=== PATIENT | female | born 1985 | race Caucasian/White ===

== ENCOUNTER 2018-04-26 22:09 | Emergency (ER) | payer BC ==
[2018-04-26 22:46] VITALS: TEMP 97.6; BMI 21.2
[2018-04-26] MEDS ORDERED: Sodium Chloride 0.9% 1,000 ML IV STA (23:17)
[2018-04-27 00:23] LABS: URINE BILIRUBIN NEGATIVE (NEGATIVE); URINE BLOOD MODERATE (NEGATIVE); URINE GLUCOSE (UA) NEGATIVE (NEGATIVE); URINE LEUKOCYTE ESTERASE NEGATIVE Leu/uL (NEGATIVE); URINE PROTEIN NEGATIVE mg/dL (<30 mg/dL); URINE UROBILINOGEN 0.2 E.U./dL (<1 E.U./dL)
[2018-04-27 00:27] LABS: URINE APPEARANCE SL CLOUDY (CLEAR); URINE COLOR YELLOW (YELLOW)
[2018-04-27 00:39] LABS: BASO # 0.03 K/mm3 (0.0-2.0); BASO % 0.2 % (0.0-3.0); EOS # 0.2 (0.0-0.7); EOS % 1.6 % (1.5-5.0); GRAN # 8.67 (1.4-6.5); GRAN % 67.7 % (50.0-68.0); HEMOGLOBIN 12.4 g/dL (12.0-16.0); LYMPH # 3.1 (1.2-3.4); MEAN CELL VOLUME 80.4 fl (80.0-105.0); MEAN CORPUSCULAR HEMOGLOBIN 27.6 pg (25.0-35.0); MEAN CORPUSCULAR HGB CONC 34.3 g/dl (31.0-37.0); MONO # 0.8 (0.1-0.6); MONO % 6.5 % (1.0-6.0); RBC 4.5 10^6/uL (3.5-6.1); RED CELL DISTRIBUTION WIDTH 14.4 % (11.5-14.5); WHITE BLOOD COUNT 12.8 10^3/ul (4.5-11.0)
[2018-04-27 00:42] LABS: URINE BACTERIA TRACE (NEG); URINE WBC 0 - 2 /hpf (0-6)
[2018-04-27 01:01] LABS: ALB/GLOB RATIO 1.3 (1.1-1.8); ALBUMIN 4.6 g/dL (3.0-4.8); ALT/SGPT 24 U/L (7-56); AST/SGOT 66 U/L (14-36); BLOOD UREA NITROGEN 9 mg/dL (7-21); GFR NON-AFRICAN AMERICAN > 60
--- NOTE | 2018-04-27 01:47 | ED PDOC ---
Arrival/HPI - History of Present Illness Narrative History of Present Illness (Text): 04/27/18 04:30 32 y/o A0 5 week female with no significant PMH presents to ED c/o vaginal spotting x 1 day. Pt reports brown blood in underwear today with associated lower abdominal cramping. Pt has not yet followed up with OB or received an US for this . Has OB appointment scheduled for next week. Denies trauma, passing of clots, fevers, chills, N/V, lightheadedness, SOB, chest pain, white/yellow vaginal discharge, urinary symptoms. <Janell Diaz - Last Filed: 04/27/18 04:27> <Raffi Cunningham - Last Filed: 04/29/18 06:30> - General Chief Complaint: Abdominal Pain Time Seen by Provider: 04/26/18 23:15 Past Medical History - Provider Review Nursing Documentation Reviewed: Yes - Infectious Disease Hx of Infectious Diseases: None - Psychiatric Hx Substance Use: No <Janell Diaz - Last Filed: 04/27/18 04:27> Family/Social History - Physician Review Nursing Documentation Reviewed: Yes Family/Social History: No Known Family HX Smoking Status: Never Smoked Hx Alcohol Use: No Hx Substance Use: No <Janell Diaz - Last Filed: 04/27/18 04:27> Allergies/Home Meds <Janell Diaz - Last Filed: 04/27/18 04:27> <Raffi Cunningham - Last Filed: 04/29/18 06:30> Allergies/Adverse Reactions: Allergies No Known Allergies Allergy (Verified 04/26/18 22:52) Home Medications: Home Meds Medication Instructions Recorded Confirmed RX: No Known Home Med 04/26/18 04/26/18 Review of Systems - Physician Review All systems were reviewed & negative as marked: Yes - Review of Systems Constitutional: Normal. absent: Fevers Eyes: Normal ENT: Normal Respiratory: Normal. absent: SOB, Cough Cardiovascular: Normal. absent: Chest Pain, Palpitations Gastrointestinal: Abdominal Pain. absent: Stool Changes, Nausea, Vomiting Genitourinary Female: Vaginal Bleeding. absent: Dysuria, Frequency, Hematuria, Urine Output Changes, Vaginal Discharge Musculoskeletal: Normal Skin: Normal Neurological: Normal. absent: Headache, Dizziness Endocrine: Normal Hemo/Lymphatic: Normal Psychiatric: Normal <aJnell Diaz - Last Filed: 04/27/18 04:27> Physical Exam Vital Signs Reviewed: Yes Vital Signs Temp Pulse Resp BP Pulse Ox 04/26/18 22:45 97.6 F 84 17 119/60 100 Temperature: Afebrile Blood Pressure: Normal Pulse: Regular Respiratory Rate: Normal Appearance: Positive for: Well-Appearing, Non-Toxic, Comfortable Pain Distress: None Mental Status: Positive for: Alert and Oriented X 3 - Systems Exam Head: Present: Atraumatic, Normocephalic Pupils: Present: PERRL Extroacular Muscles: Present: EOMI Conjunctiva: Present: Normal Mouth: Present: Moist Mucous Membranes Neck: Present: Normal Range of Motion Respiratory/Chest: Present: Clear to Auscultation, Good Air Exchange. No: Respiratory Distress, Accessory Muscle Use Cardiovascular: Present: Regular Rate and Rhythm, Normal S1, S2. No: Murmurs Abdomen: Present: Normal Bowel Sounds. No: Tenderness, Distention, Peritoneal Signs Genitourinary/Pelvic Exam: Present: Normal External Genitalia, Vaginal Bleeding (small amounts of brown blood in vaginal canal), Cervical os Closed. No: Vaginal Discharge, Vaginal Lesions, Adenexal Tenderness, Adenexal Mass, Cervical Motion Tendernes, Odor Back: Present: Normal Inspection Upper Extremity: Present: Normal Inspection, Normal ROM, NORMAL PULSES. No: Cyanosis, Edema Lower Extremity: Present: Normal Inspection, NORMAL PULSES, Normal ROM. No: Edema Neurological: Present: GCS=15, CN II-XII Intact, Speech Normal Skin: Present: Warm, Dry, Normal Color. No: Rashes Lymphatic: No: Cervical Adenopathy Psychiatric: Present: Alert, Oriented x 3, Normal Insight, Normal Concentration <Janell Diaz - Last Filed: 04/27/18 04:27> Vital Signs Temp Pulse Resp BP Pulse Ox 04/27/18 01:58 97.6 F 76 18 120/70 98 04/26/18 22:45 97.6 F 84 17 119/60 100 <Raffi Cunningham - Last Filed: 04/29/18 06:30> Medical Decision Making ED Course and Treatment: 04/27/18 04:27 Initial Plan: --poc preg --beta hcg --TV US --CBC, CMP --UA, culture --type and screen --pelvic exam --fluids CBC, CMP: wnl beta hcg: appropriate for gestation UA: wnl Type and screen: B +, rhogham not indicated TV US: Ultrasound pelvis, transvaginal. Indication: Vaginal spotting. Technique: Transvaginal real-time ultrasound images were obtained. Findings: Retroverted uterus measuring 9.8x4.9x6.4 cm. Intrauterine gestational sac is noted measuring 1.9 cm which corresponds to an estimated gestation age of 5 weeks and 4 days. Normal yolk sac measuring 2.2 mm. No pole or cardiac activity is identified. No free fluid is noted in the pelvic cul-de-sac. Complex corpus luteum cyst of the right ovary measuring 2.1 cm. Simple cyst of the left ovary measuring 2.6 cm. Impression: Intrauterine gestational sac without pole. Right ovarian corpus luteum cyst. Left ovarian anechoic, simple cyst. Impression: Vaginal bleeding in Plan: --bedrest --followup with OBGYN as scheduled next week --return if worse Plan discussed with pt, who agrees and understands. pt comfortable with discharge home 04/27/18 04:33 - Lab Interpretations Lab Results: 04/27/18 00:26 04/27/18 00:26 Lab Results 04/27/18 00:26: Sodium 139, Potassium 4.5, Chloride 104, Carbon Dioxide 26, Anion Gap 13, BUN 9, Creatinine 0.6 L, Est GFR ( Amer) > 60, Est GFR (Non-Af Amer) > 60, Random Glucose 88, Calcium 10.0, Total Bilirubin 0.3, AST 66 H, ALT 24, Alkaline Phosphatase 73, Total Protein 8.2, Albumin 4.6, Globulin 3.6, Albumin/Globulin Ratio 1.3 04/27/18 00:26: WBC 12.8 H, RBC 4.50, Hgb 12.4, Hct 36.2, MCV 80.4, MCH 27.6, MCHC 34.3, RDW 14.4, Plt Count 366, MPV 10.0, Gran % 67.7, Lymph % (Auto) 24.0, Mclennan % (Auto) 6.5 H, Eos % (Auto) 1.6, Baso % (Auto) 0.2, Gran # 8.67 H, Lymph # (Auto) 3.1, Mclennan # (Auto) 0.8 H, Eos # (Auto) 0.2, Baso # (Auto) 0.03 04/26/18 23:15: Urine Color Yellow, Urine Appearance Sl cloudy, Urine pH 6.0, Ur Specific Norman 1.020, Urine Protein Negative, Urine Glucose (UA) Negative, Urine Ketones Trace H, Urine Blood Moderate H, Urine Nitrate Negative, Urine Bilirubin Negative, Urine Urobilinogen 0.2, Ur Leukocyte Esterase Negative, Urine RBC 2 - 5, Urine WBC 0 - 2, Ur Epithelial Cells 3 - 4, Urine Bacteria Trace - RAD Interpretation Radiology Orders: 04/26/18 23:15 OB TRANSVAGINAL [US] Stat - Medication Orders Current Medication Orders: Discontinued Medications Sodium Chloride (Sodium Chloride 0.9%) 1,000 mls @ 999 mls/hr IV .Q1H1M STA Stop: 04/27/18 00:17 Last Admin: 04/27/18 00:21 Dose: 999 mls/hr eMAR Start Stop Document 04/27/18 00:21 OCS (Rec: 04/27/18 00:21 OCS [id number]) Intravenous Solution Start Date 04/27/18 Start Time 00:21 End Date 04/27/18 End time 01:22 Total Infusion Time 61 <Janell Diaz - Last Filed: 04/27/18 04:27> ED Course and Treatment: 04/29/18 06:30 The documented history was done by the physician piece meat trimmer. The documented phys ical exam was done by the physician piece meat trimmer. The documented procedures were done by the physician piece meat trimmer, I was available for consultation during the PA/PHYSICS TEACHER evaluation. The chart was reviewed by me, and I agree with the management and plan. - Lab Interpretations Microbiology Results: Microbiology Results 04/26/18 23:15 Urine Urine Culture - Final No Growth (<1,000 CFU/ML) Lab Results: 04/27/18 00:26 04/27/18 00:26 Lab Results 04/27/18 01:48: Blood Type Confirm B POSITIVE 04/27/18 01:13: Blood Type B POSITIVE, Antibody Screen Negative, BBK History Checked No verified bt 04/27/18 00:26: Sodium 139, Potassium 4.5, Chloride 104, Carbon Dioxide 26, Anion Gap 13, BUN 9, Creatinine 0.6 L, Est GFR ( Amer) > 60, Est GFR (Non-Af Amer) > 60, Random Glucose 88, Calcium 10.0, Total Bilirubin 0.3, AST 66 H, ALT 24, Alkaline Phosphatase 73, Total Protein 8.2, Albumin 4.6, Globulin 3.6, Albumin/Globulin Ratio 1.3 04/27/18 00:26: WBC 12.8 H, RBC 4.50, Hgb 12.4, Hct 36.2, MCV 80.4, MCH 27.6, MCHC 34.3, RDW 14.4, Plt Count 366, MPV 10.0, Gran % 67.7, Lymph % (Auto) 24.0, Mclennan % (Auto) 6.5 H, Eos % (Auto) 1.6, Baso % (Auto) 0.2, Gran # 8.67 H, Lymph # (Auto) 3.1, Mclennan # (Auto) 0.8 H, Eos # (Auto) 0.2, Baso # (Auto) 0.03 04/27/18 00:26: Beta HCG, Quant 96103.00 H 04/26/18 23:15: Urine Color Yellow, Urine Appearance Sl cloudy, Urine pH 6.0, Ur Specific Norman 1.020, Urine Protein Negative, Urine Glucose (UA) Negative, U rine Ketones Trace H, Urine Blood Moderate H, Urine Nitrate Negative, Urine Bilirubin Negative, Urine Urobilinogen 0.2, Ur Leukocyte Esterase Negative, Urine RBC 2 - 5, Urine WBC 0 - 2, Ur Epithelial Cells 3 - 4, Urine Bacteria Trace - RAD Interpretation Radiology Orders: 04/26/18 23:15 OB TRANSVAGINAL [US] Stat - Medication Orders Current Medication Orders: Discontinued Medications Sodium Chloride (Sodium Chloride 0.9%) 1,000 mls @ 999 mls/hr IV .Q1H1M STA Stop: 04/27/18 00:17 Last Admin: 04/27/18 00:21 Dose: 999 mls/hr eMAR Start Stop Document 04/27/18 00:21 OCS (Rec: 04/27/18 00:21 OCS [id number]) Intravenous Solution Start Date 04/27/18 Start Time 00:21 End Date 04/27/18 End time 01:22 Total Infusion Time 61 <Octavio,Raffi - Last Filed: 04/29/18 06:30> Disposition/Present on Arrival - Present on Arrival Any Indicators Present on Arrival: No History of DVT/PE: No History of Uncontrolled Diabetes: No Urinary Catheter: No History of Decub. Ulcer: No History Surgical Site Infection Following: None - Disposition Have Diagnosis and Disposition been Completed?: Yes Disposition Time: 01:00 Patient Plan: Discharge <Janell Diaz - Last Filed: 04/27/18 04:27> <Raffi Cunningham - Last Filed: 04/29/18 06:30> - Disposition Diagnosis: Vaginal bleeding during Disposition: HOME/ ROUTINE Condition: IMPROVED Discharge Instructions (ExitCare): Bleeding With Additional Instructions: No strenuous activity, no heavy lifting Followup with OBGYN as scheduled Return to ED if symptoms worsen Referrals: PCP,NO [Primary Care Provider] - Follow up with primary Forms: [facility] ([place]), WORK NOTE
[2018-04-27 03:23] VITALS: BP 120/70; PULSE 76; RESP 18
[2018-04-27 03:27] VITALS: O2SAT 98
--- NOTE | 2018-04-27 11:22 | US ---
Date of service: 04/26/2018 PROCEDURE: OB Pelvic Ultrasound HISTORY: OB 4-5weeks , vaginal bleeding COMPARISON: None available. FINDINGS: UTERUS: Single intrauterine gestation. Yolk sac is visualized. Pole is not identified on the current examination. Gestational sac diameter measures 1.4 cm equivalent to 5 weeks and 4 days gestation age (Ultrasound estimated): 5 weeks and 4 days Date of delivery (Ultrasound estimated) : 12/23/2018 Purvi-gestational hemorrhage: None. Uterus measures 9.8 x 4.9 x 6.4 cm. Retroverted. CERVIX: Long and closed. No cervical abnormality seen. RIGHT OVARY: Measures 3.4 x 2.4 x 3.4 cm. No mass. Normal flow. There is a 2.1 x 1.8 x 2.0 cm hemorrhagic cyst. LEFT OVARY: Measures 3.6 x 2.8 x 3.6 cm. No mass. Normal flow. There is a 2.4 x 1.4 x 1.9 cm simple cyst. FREE FLUID: None. OTHER FINDINGS: None. IMPRESSION: Single intrauterine gestational sac with mean gestational age of 5 weeks and 4 days. Yolk sac is visualized. pole is not identified on the current examination. The estimated date of delivery by ultrasound is 12/23/2018. The ultrasound dates correspond with the clinical dates. Clinical and imaging follow-up is recommended to confirm viability. 2.1 cm hemorrhagic cyst in the right ovary. A preliminary report was provided by [employer].
== END 2018-04-27 01:58 | disposition home or self-care (01) ==
LOC: ED 22:09
DX: O46.91 Antepartum hemorrhage, unspecified, first trimester (principal); Z3A.01 Less than 8 weeks gestation of pregnancy
CPT/HCPCS: 76817; 80053; 81001; 84702; 85025; 86850; 86900; 87086; 96360; 99283; J7030